=== PATIENT | male | born 1955 | race Caucasian/White ===

== ENCOUNTER → 2018-03-08 | Outpatient (CLI) | payer OTHER ==
[~2018-03-08] MED LIST: ACTALIN PO; ASPI-496 PO; CA C1TAB39 PO; CHOL100011 PO; DIPH25CA61 PO; FISH400C2 PO; FURO40TA6 PO; GLUC-88 PO; KETO10TA PO; KRIL1CAP PO; LACT1CAP37 PO; LORA2TAB99 PO; LOSA50TA7 PO; LUTE40CA PO; LYSI500T25 PO; METH4TAB2 PO; METH500C3 PO; METH750T87 PO; METR500T8 PO; NAPR-856 PO; NORT50CA52 PO; OXYC-307 PO; PANT40TA5 PO; POTA20TA89 PO; S-AD200T PO; UBID1CAP2 PO; VIT1CAPS44 PO; [UNRECOGNIZED DRUG - OTHER] PO; [UNRECOGNIZED DRUG - OTHER] PO; decadron INJ; folic acid PO; kenalog IM; omega q plus PO; toradol PO; total restore PO; vitamin e PO
[2018-03-08 15:52] LABS: BASOPHILS # (AUTO) 0.04 x10^3/uL (0-0.1); BASOPHILS % (AUTO) 1 % (0-1); EOSINOPHILS # (AUTO) 0.15 x10^3/uL (0-0.4); EOSINOPHILS % (AUTO) 2 % (1-7); LYMPHOCYTES # (AUTO) 2.48 x10^3/uL (1-3.4); LYMPHOCYTES % (AUTO) 33 % (22-44); MD NO; MEAN CORPUSCULAR HEMOGLOBIN 33.3 pg (27.5-34.5); MEAN CORPUSCULAR HGB CONC 34.4 g/dL (33.2-36.2); MEAN CORPUSCULAR VOLUME 96.9 fL (81-97); MEAN PLATELET VOLUME 8.6 fL (7.4-10.4); MONOCYTES # (AUTO) 0.58 x10^3/uL (0.2-0.8); MONOCYTES % (AUTO) 8 % (2-9); NEUTROPHILS # (AUTO) 4.31 x10^3/uL (1.8-6.8); NEUTROPHILS % (AUTO) 57 % (42-75); PLATELET COUNT 186 x10^3/uL (130-400); RED BLOOD COUNT 4.56 x10^6/uL (4.38-5.82); RED CELL DISTRIBUTION WIDTH 13.3 % (9.4-14.8)
[2018-03-08 16:03] LABS: INTERNATIONAL NORMALIZED RATIO 0.92 (0.93-1.1); PROTHROMBIN TIME 9.5 Seconds (9.6-11.5)
[2018-03-08 16:05] LABS: ALANINE AMINOTRANSFERASE 36 U/L (12-78); ALBUMIN 3.6 g/dL (3.4-5.0); ANION GAP 9 mmol/L (5-15); CALCIUM 8.1 mg/dL (8.5-10.1); CHLORIDE 108 mmol/L (98-107); CREATININE 1.07 mg/dL (0.7-1.3)
[2018-03-08 16:07] LABS: ALKALINE PHOSPHATASE 98 U/L (45-117); BILIRUBIN,TOTAL 0.5 mg/dL (0.2-1.0); TOTAL PROTEIN 7.1 g/dL (6.4-8.2)
== END | disposition home or self-care (01) ==
LOC: STAR 15:13
PROVIDERS: ATTEND Surgery
DX: Z01.818 Encounter for other preprocedural examination (principal)
CPT/HCPCS: 36415; 80053; 85025; 85610; 93005

== ENCOUNTER 2018-03-15 10:10 | Day surgery (SDC) | payer OTHER ==
[~2018-03-15] VITALS: Ht 175.3 cm; Wt 91.5 kg
[~2018-03-15 10:10] MED LIST changes: +BUPIVACAINE/PF-EPI 0.5% 1:200K ONE
[2018-03-15] MEDS ORDERED: LACTATED RINGERS 1,000 ML IV SCH (10:42)
[2018-03-15 10:48] VITALS: BP 154/100
[2018-03-15] MEDS ORDERED: FENTANYL PF 250 MCG/5ML ONE (11:30)
[2018-03-15] MEDS ORDERED: MIDAZOLAM 1 MG/ML, 2ML ONE (11:30)
[2018-03-15] MEDS ORDERED: MIDAZOLAM 1 MG/ML, 5ML ONE (12:00)
[2018-03-15] MEDS ORDERED: LACTATED RINGERS 1,000 ML ONE (12:00)
[2018-03-15] MEDS ORDERED: LIDOCAINE 2% 100MG/5ML SYRINGE ONE (12:00)
[2018-03-15] MEDS ORDERED: PROPOFOL 10 MG/ML, 20ML ONE (12:00)
[2018-03-15] MEDS ORDERED: BUPIVACAINE/PF-EPI 0.5% 1:200K INFIL ONE (12:20)
[2018-03-15] MEDS ORDERED: LABETALOL 5MG/ML, 20ML IV PRN (13:00)
[2018-03-15] MEDS ORDERED: OXYcodone 5 MG/5 ML ORAL.SOL UDC PO PRN (13:00)
[2018-03-15] MEDS ORDERED: PROMETHAZINE 25 MG/ML, 1ML IV PRN (13:00)
[2018-03-15] MEDS ORDERED: ACETAMINOPHEN 325 MG TABLET PO PRN (13:00)
[2018-03-15] MEDS ORDERED: hydrALAzine 20 MG/ML, 1ML IV PRN (13:00)
[2018-03-15] MEDS ORDERED: LORazepam 2 MG/ML, 1ML IVPush PRN (13:00)
[2018-03-15] MEDS ORDERED: ALBUTEROL SULFATE 2.5 MG/3 ML NPPB PRN (13:00)
[2018-03-15] MEDS ORDERED: KETOROLAC 30 MG/1 ML IV PRN (13:00)
[2018-03-15] MEDS ORDERED: MEPERIDINE/PF 25MG/0.5ML IVPush PRN (13:00)
[2018-03-15] MEDS ORDERED: HYDROmorphone 1 MG/ML, 1ML IV PRN (13:00)
[2018-03-15] MEDS ORDERED: KETOROLAC 30 MG/1 ML ONE (13:12)
[2018-03-15] MEDS ORDERED: OXYcodone 5 MG/5 ML ORAL.SOL UDC ONE (13:32)
[2018-03-15] MEDS ORDERED: FENTANYL PF 100 MCG/2ML ONE (13:40)
[2018-03-15] MEDS: FENTANYL PF 100 MCG/2ML IV PRN ×2 (13:43→13:58)
== END 2018-03-15 16:05 | disposition home or self-care (01) ==
LOC: OUT 10:10
PROVIDERS: ATTEND Surgery
DX: K43.0 Incisional hernia with obstruction, without gangrene (principal); I10 Essential (primary) hypertension; E78.5 Hyperlipidemia, unspecified; Z86.010 Personal history of colon polyps; Z87.01 Personal history of pneumonia (recurrent); Z79.899 Other long term (current) drug therapy; Z88.6 Allergy status to analgesic agent; Z88.1 Allergy status to other antibiotic agents; Z88.8 Allergy status to other drugs, medicaments and biological substances; Z91.018 Allergy to other foods; Z91.09 Other allergy status, other than to drugs and biological substances; Z98.52 Vasectomy status; Z98.890 Other specified postprocedural states
CPT/HCPCS: 49561; J1885; J2250; J3010; J7120; J2704

== ENCOUNTER 2018-10-23 09:57 | Emergency (ER) | payer OTHER ==
[~2018-10-23 09:57] MED LIST changes: -BUPIVACAINE/PF-EPI 0.5% 1:200K ONE; +LOSA50TA14 PO; -LOSA50TA7 PO; +METR-90 PO; -METR500T8 PO
[2018-10-23 11:19] LABS: BASOPHILS # (AUTO) 0.02 x10^3/uL (0-0.1); BASOPHILS % (AUTO) 1 % (0-1); EOSINOPHILS # (AUTO) 0.23 x10^3/uL (0-0.4); EOSINOPHILS % (AUTO) 6 % (1-7); LYMPHOCYTES # (AUTO) 1.81 x10^3/uL (1-3.4); LYMPHOCYTES % (AUTO) 43 % (22-44); MD NO; MEAN CORPUSCULAR HEMOGLOBIN 33.7 pg (27.5-34.5); MEAN PLATELET VOLUME 8.7 fL (7.4-10.4); MONOCYTES # (AUTO) 0.47 x10^3/uL (0.2-0.8); MONOCYTES % (AUTO) 11 % (2-9); NEUTROPHILS # (AUTO) 1.71 x10^3/uL (1.8-6.8); NEUTROPHILS % (AUTO) 40 % (42-75); PLATELET COUNT 204 x10^3/uL (130-400); RED BLOOD COUNT 4.57 x10^6/uL (4.38-5.82); RED CELL DISTRIBUTION WIDTH 14.3 % (9.4-14.8)
[2018-10-23 11:29] LABS: ALBUMIN 3.6 g/dL (3.4-5.0); ANION GAP 7 mmol/L (5-15); CALCIUM 8.3 mg/dL (8.5-10.1); CHLORIDE 110 mmol/L (98-107); CREATININE 1.04 mg/dL (0.7-1.3)
[2018-10-23] MEDS ORDERED: HYDROmorphone 2 MG/ML, 1ML IVPush PRN (11:30)
[2018-10-23] MEDS ORDERED: SODIUM CHLORIDE FLUSH 10ML SYR IVF ONE (11:30)
[2018-10-23] MEDS ORDERED: KETOROLAC 30 MG/1 ML IVPush ONE (11:30)
[2018-10-23] MEDS ORDERED: ONDANSETRON 2MG/ML, 2ML IVPush ONE (11:30)
[2018-10-23] MEDS ORDERED: KETOROLAC 30 MG/1 ML ONE (11:36)
[2018-10-23] MEDS ORDERED: HYDROmorphone 2 MG/ML, 1ML ONE (11:36)
[2018-10-23] MEDS ORDERED: ONDANSETRON 2MG/ML, 2ML ONE (11:36)
--- NOTE | 2018-10-23 12:30 | NUR ---
Pt requesting "D5" PIV fluids to be hung as he is "hypoglycemic". FSBG on hospital glucometer reads 95. EDMD aware. EDMD advises food/water/or juice. Pt requesting apple and cranberry juice. ED staffing mgr provided for pt.
--- NOTE | 2018-10-23 13:37 | NUR ---
Pt states, "I am feeling much better from what you gave me." Pt connected to NIBP and continous pulse ox. Both bedrails up for safety measures. Call light within reach. Pt states, "I started taking Cipro three days ago. I only take one twice a day." ED MD aware.
[2018-10-23 14:07] LABS: MICROSCOPIC NOT IND
[2018-10-23 14:17] LABS: CULTURE INDICATED? NO
[2018-10-23] MEDS ORDERED: PLEASE ENTER HEIGHT AND WEIGHT MC SCH (14:25)
--- NOTE | 2018-10-23 14:49 | NUR ---
Patient given discharge instructions and they have confirmed that they understand the instructions. Patient ambulatory with steady gait. Pt left with d/c paperwork, prescription, and all personal belongings. SALVATORE.
[2018-10-23 14:50] VITALS: BP 150/78
== END 2018-10-23 14:52 | disposition home or self-care (01) ==
LOC: ED 14:21
DX: S39.012A Strain of muscle, fascia and tendon of lower back, initial encounter (principal); S33.5XXA Sprain of ligaments of lumbar spine, initial encounter; I10 Essential (primary) hypertension; G89.29 Other chronic pain; M54.2 Cervicalgia; F41.1 Generalized anxiety disorder; X58.XXXA Exposure to other specified factors, initial encounter; Y93.89 Activity, other specified; Y92.89 Other specified places as the place of occurrence of the external cause; Y99.8 Other external cause status
CPT/HCPCS: 36415; 74176; 80048; 81003; 82040; 82962; 85025; 96374; 96375; 99284; J1170; J1885; J2405; J7512

== ENCOUNTER 2018-10-31 17:44 | Inpatient (IN) | payer OTHER ==
[~2018-10-31] VITALS: Ht 175.3 cm; Wt 85.6 kg
--- NOTE | 2018-10-31 18:19 | NUR ---
pt here september/2018 with back/nerve pain. pt presents today with c/o diaphoresis, tachycardia, skipping beats all x 7 days.
[2018-10-31 18:34] LABS: BASOPHILS # (AUTO) 0.03 x10^3/uL (0-0.1); BASOPHILS % (AUTO) 0 % (0-1); EOSINOPHILS # (AUTO) 0.11 x10^3/uL (0-0.4); EOSINOPHILS % (AUTO) 1 % (1-7); LYMPHOCYTES % (AUTO) 36 % (22-44); MD NO; MEAN CORPUSCULAR HEMOGLOBIN 32.5 pg (27.5-34.5); MEAN CORPUSCULAR HGB CONC 32.4 g/dL (33.2-36.2); MEAN CORPUSCULAR VOLUME 100.1 fL (81-97); MEAN PLATELET VOLUME 8.7 fL (7.4-10.4); MONOCYTES # (AUTO) 0.88 x10^3/uL (0.2-0.8); MONOCYTES % (AUTO) 11 % (2-9); NEUTROPHILS # (AUTO) 4.05 x10^3/uL (1.8-6.8); NEUTROPHILS % (AUTO) 52 % (42-75); PLATELET COUNT 230 x10^3/uL (130-400); RED BLOOD COUNT 5.82 x10^6/uL (4.38-5.82); RED CELL DISTRIBUTION WIDTH 14.4 % (9.4-14.8)
--- NOTE | 2018-10-31 18:35 | NUR ---
pt had sustained episode of hr 180s, md huitron called to bedside to assess pt
[2018-10-31 18:47] LABS: ALANINE AMINOTRANSFERASE 41 U/L (12-78); ALBUMIN 3.8 g/dL (3.4-5.0); ANION GAP 7 mmol/L (5-15); CALCIUM 9.4 mg/dL (8.5-10.1); CHLORIDE 104 mmol/L (98-107); CREATININE 1.43 mg/dL (0.7-1.3)
[2018-10-31 18:52] LABS: ALKALINE PHOSPHATASE 92 U/L (45-117); BILIRUBIN,TOTAL 0.9 mg/dL (0.2-1.0); FREE T4 (FREE THYROXINE) 1.02 ng/dL (0.76-1.46); TOTAL PROTEIN 7.9 g/dL (6.4-8.2); TROPONIN I < 0.015 ng/mL (0.000-0.045)
--- NOTE | 2018-10-31 18:52 | NUR ---
BS REPORT OF PT FROM MENDEZ NELSON AND ASSUMING CARE OF PT AT THIS TIME.
[2018-10-31] MEDS ORDERED: SODIUM CHLORIDE 0.9% 1,000ML IVBOLUS ONE (19:00)
--- NOTE | 2018-10-31 19:18 | NUR ---
PT VSS AND UPDATED IN EMR. PT HAS CALL LIGHT WITHIN REACH. PILLOW PROVIDED. PT REQUESTING PO FLUIDS.
[2018-10-31] MEDS ORDERED: SODIUM CHLORIDE FLUSH 10ML SYR IVF PRN (20:00)
--- NOTE | 2018-10-31 20:36 | NUR ---
ADMITTING ERP AT BS. PT HAS CALL LIGHT WITHIN REACH.
[2018-10-31] MEDS ORDERED: ONDANSETRON ODT 4 MG PO PRN (21:00)
[2018-10-31] MEDS ORDERED: ONDANSETRON 2MG/ML, 2ML IVPush PRN (21:00)
[2018-10-31] MEDS ORDERED: OXYcodone/APAP 10/325MG TABLET PO PRN (21:00)
[2018-10-31 21:57] LABS: TROPONIN I < 0.015 ng/mL (0.000-0.045)
--- NOTE | 2018-10-31 22:01 | NUR ---
REPORT OF PT TO MENDEZ CABEZAS. ALL QUESTIONS ANSWERED. PT VSS AND UPDATED IN EMR. PT AWARE OF ROOM ASSIGNMENT.
[2018-10-31 22:26] VITALS: BP 135/99
[2018-10-31] MEDS: SODIUM CHLORIDE 0.9% 1,000 ML IV SCH (23:11)
[2018-10-31] MEDS: ENOXAPARIN 40 MG/0.4 ML SQ SCH (23:11)
[2018-11-01] VITALS (7 sets, daily range): BP systolic 107–153; BP diastolic 70–93
[2018-11-01 02:49] LABS: BASOPHILS # (AUTO) 0.03 x10^3/uL (0-0.1); BASOPHILS % (AUTO) 1 % (0-1); EOSINOPHILS # (AUTO) 0.15 x10^3/uL (0-0.4); EOSINOPHILS % (AUTO) 2 % (1-7); LYMPHOCYTES # (AUTO) 2.39 x10^3/uL (1-3.4); LYMPHOCYTES % (AUTO) 37 % (22-44); MD NO; MEAN CORPUSCULAR HEMOGLOBIN 32.7 pg (27.5-34.5); MEAN CORPUSCULAR VOLUME 99.1 fL (81-97); MEAN PLATELET VOLUME 8.8 fL (7.4-10.4); MONOCYTES # (AUTO) 0.53 x10^3/uL (0.2-0.8); MONOCYTES % (AUTO) 8 % (2-9); NEUTROPHILS # (AUTO) 3.37 x10^3/uL (1.8-6.8); NEUTROPHILS % (AUTO) 52 % (42-75); PLATELET COUNT 222 x10^3/uL (130-400); RED BLOOD COUNT 5.17 x10^6/uL (4.38-5.82); RED CELL DISTRIBUTION WIDTH 14.4 % (9.4-14.8)
[2018-11-01 03:01] LABS: ALBUMIN 3.2 g/dL (3.4-5.0); ANION GAP 6 mmol/L (5-15); CALCIUM 8.4 mg/dL (8.5-10.1); CHLORIDE 108 mmol/L (98-107)
[2018-11-01 03:06] LABS: TROPONIN I < 0.015 ng/mL (0.000-0.045)
[2018-11-01 03:30] LABS: ALANINE AMINOTRANSFERASE 33 U/L (12-78); ALKALINE PHOSPHATASE 74 U/L (45-117); BILIRUBIN,TOTAL 0.8 mg/dL (0.2-1.0); CREATININE 1.25 mg/dL (0.7-1.3); TOTAL PROTEIN 6.5 g/dL (6.4-8.2)
[2018-11-01] MEDS: SODIUM CHLORIDE 0.9% 1,000 ML IV SCH (05:50)
[2018-11-01] MEDS: ASPIRIN 81 MG TABLET EC PO SCH (09:01)
[2018-11-01] MEDS: LOSARTAN 50MG TABLET PO SCH (09:03)
[2018-11-01] MEDS ORDERED: MAGNESIUM SULFATE PMX 2GM/50ML 50 ML IV ONE (11:30)
[2018-11-01] MEDS: METOPROLOL TARTRATE 25 MG TABLET PO SCH ×2 (11:48→20:11)
[2018-11-01] MEDS: ENOXAPARIN 40 MG/0.4 ML SQ SCH (20:10)
[2018-11-01] MEDS ORDERED: SODIUM CHLORIDE 0.9% 1,000 ML IV SCH (20:54)
[2018-11-01] MEDS ORDERED: NORTRIPTYLINE 50 MG CAPSULE PO SCH (21:00)
[2018-11-02 01:04] VITALS: BP 129/84
[2018-11-02 07:08] VITALS: BP 125/83
[2018-11-02] MEDS: ASPIRIN 81 MG TABLET EC PO SCH (08:32)
[2018-11-02] MEDS: METOPROLOL TARTRATE 25 MG TABLET PO SCH (08:33)
[2018-11-02] MEDS: LOSARTAN 50MG TABLET PO SCH (08:33)
[2018-11-02] MEDS ORDERED: METO25TA35 PO (12:59)
[2018-11-02 13:37] VITALS: BP 119/79
== END 2018-11-02 14:10 | disposition home or self-care (01) | DRG 683 ==
LOC: ED 19:34 → EDIP 19:55 → 5SO 22:14 → DCLOUNGE 11-02 14:02
PROVIDERS: ADMIT Internal Medicine; ATTEND Internal Medicine
DX: N17.9 Acute kidney failure, unspecified (principal); I47.1 Supraventricular tachycardia; D75.1 Secondary polycythemia; D75.89 Other specified diseases of blood and blood-forming organs; E03.9 Hypothyroidism, unspecified; E78.5 Hyperlipidemia, unspecified; E86.0 Dehydration; F12.90 Cannabis use, unspecified, uncomplicated; F41.9 Anxiety disorder, unspecified; G89.29 Other chronic pain; I48.0 Paroxysmal atrial fibrillation; I10 Essential (primary) hypertension; G47.00 Insomnia, unspecified; J45.909 Unspecified asthma, uncomplicated; Z79.899 Other long term (current) drug therapy; Z82.49 Family history of ischemic heart disease and other diseases of the circulatory system; Z87.891 Personal history of nicotine dependence; Z90.49 Acquired absence of other specified parts of digestive tract; Z79.82 Long term (current) use of aspirin
CPT/HCPCS: 0399T; 36415; 71045; 78452; 80053; 82607; 83735; 84100; 84439; 84443; 84484; 85025; 85379; 93005; 93017; 93306; 99285; G0378; J1650; A9502; C9898; J3475; J7030